=== PATIENT | female | born 1990 | race African-American/Black ===

== ENCOUNTER → 2016-12-12 16:39 | Outpatient (CLI) | payer MEDICAID ==
[2015-07-12 05:22] VITALS: BMI 22.0
[~2016-12-12 16:39] MED LIST: HYDROCODON-ACE1 EAC7 PO; IBUPROFEN600 MG PO; PRENAVITE1 TAB PO
== END | disposition home or self-care (01) ==
LOC: D.LDO 16:39
DX: Z34.93 Encounter for supervision of normal pregnancy, unspecified, third trimester (principal); Z3A.37 37 weeks gestation of pregnancy

== ENCOUNTER 2016-12-19 04:23 | Inpatient (IN) | payer MEDICAID ==
[~2016-12-19] VITALS: Ht 160 cm; Wt 53.5 kg
[2016-12-19] MEDS ORDERED: FERROUS SULFAT325 MG PO (04:52)
[2016-12-19 04:53] VITALS: BP 115/75; Ht 160 cm; Wt 53.5 kg
[2016-12-19 04:59] LABS: HEMATOCRIT 27.7 % (36.0-48.0); HEMOGLOBIN 9.2 g/dL (12-16); MCH 28.2 pg (26.0-34.0); MCHC 33.2 g/dL (31.0-37.0); MEAN PLATELET VOLUME 9.6 fL (7.4-10.4); RBC 3.26 10x6/uL (4.00-5.40); RDW 14.6 % (11.5-14.5); WBC 7.3 10x3/uL (4.8-10.8)
[2016-12-19 05:07] LABS: UDS - AMPHET NEGATIVE QUAL (NEGATIVE); UDS - BARB NEGATIVE QUAL (NEGATIVE); UDS - BENZO NEGATIVE QUAL (NEGATIVE); UDS - COCAINE NEGATIVE QUAL (NEGATIVE); UDS - METH NEGATIVE QUAL (NEGATIVE); UDS - OPIATE NEGATIVE QUAL (NEGATIVE); UDS - PCP NEGATIVE QUAL (NEGATIVE); UDS - THC POSITIVE QUAL (NEGATIVE)
--- NOTE | 2016-12-19 14:28 | NUR ---
Patient Name: ANTONY AG Admission Status: Elective Accout number: [id number] Admission Date: 12-19-2016 : 1990 Admission Diagnosis: Attending: LOPEZ Current LOS: 1 Anticipated DC Date: 12-20-2016 Planned Disposition: Home Primary Insurance: MEDICAID [place] Discharge Planning Comments: CM met with patient @ bedside. She states she is not employed at this time. She lives at home with her 1 1/2 year old daughter @ [address] [facility] in [place], . She reports baby's father is Pool AlejoJr edgardo. She reports he is employed by [employer] in [place]. [facility]. Patient reports baby's name is Marcial Olson. She is undecided whether her last name will be Thierno or John. At [place]j, she will return home with her daughter. She states her sisters & aunt will help her. They also provide transportation since she does not have a car. She denies having pets, ETOH & drugs in the home. She states she is a smoker but does not smoke indoors. She reports she has an infant car seat. She has an active Medicaid number, plans to apply for WIC later this week, & is receiving SNAP benefits. She does not plan to breast feed. She reports having all necessary supplies for baby including diapers, clothing, crib, & bottles. She reports her home has all basic working utilities and in a safe environment for herself and her children. Baby's co founder and cto is Dr. Hill. Discussed UDS findings. She reports she last used THC about 2 months ago for a couple of days. She states she was told she may have sickle cell disease & was very stressed out & worried. UDS findings were reported to [facility] by nursing as required per [employer]. Answered all questions. CM will follow & assist as needed. Manager Program Management: Salina Avitia
--- NOTE | 2016-12-19 14:45 | NUR ---
PT AMBULATES TO BR VOIDS 400 ML OF BLOOD-TINGED URINE. PERICARE DONE. PERIPAD CHANGED. PT AMB BACK TO BED. C/O BACK PAIN OF "8" ON 0-10 PAIN SCALE. IBUPROFEN 600 MG GIVEN PO ORDERED. PT INSTRUCTED ON MED. VERBALIZES UNDERSTANDING.
--- NOTE | 2016-12-19 15:30 | NUR ---
PT SITTING UP IN BED. VISITS WITH FAMILY AND HOLDS WITH MUCH WARMTH SHOWN. DENIES NEEDS.
--- NOTE | 2016-12-19 17:23 | NUR ---
PT SITTING UP IN BED. CARING FOR INFANT. VSS. FUNDUS FIRM AT U/1. RUBRA LOCHIA SMALL AMT. NO CLOTS NOTED. MILD EDEMA NOTED TO LABIA. PT DENIES C/O OR NEEDS.
[2016-12-19 17:24] VITALS: BP 114/73
[2016-12-19 19:09] VITALS: BP 119/77
--- NOTE | 2016-12-19 19:14 | NUR ---
PT RECEIVED TO MY CARE IN ROOM 1257. PT RESTING IN BED IN HIGH FOWLERS POSITION, VISITING WITH FAMILY AT BS, IN NO ACUTE DISTRESS. PT IS A 26YO G2 NOW P2 WITH OF VIABLE FEMALE TODAY @ 0752, PT WITH FIRST DEGREE LACERATION AND NO REPAIR. INFANT @ 38.4 WKS GESTATION. AAOX3. HR REGULAR. LUNGS CTAB. ABDOMEN SOFT AND NON TENDER. BS ACTIVE TIMES 4. FUNDUS FIRM AND ML @ U/-1, LOCHIA RUBRA SCANT. PERINIUM APPEARS TO BE INTACT WITH MINIMAL SWELLING NOTED. PT DENIES DIFFICULTY VOIDING. STATES SHE HAS PASSED GAS BUT HAS NOT HAD A BM SINCE . QING PAD AND PANTIES IN PLACE. NO SWELLING NOTED TO UPPER OR LOWER EXTREMITIES BILATERALLY. 18G SL IN PLACE TO RIGHT FA, FLUSHED WITH 5 CC NS AT THIS TIME WITHOUT DIFFICULTY. NO REDNESS, EDEMA, OR DRAINAGE NOTED TO SITE. PT TOLERATING REGULAR DIET. PT C/O PAIN OF 2/10 AT THIS TIME. DENIES THE NEED FOR MEDICATION. PT REQUESTS COKE AND ICE, PROVIDED AT THIS TIME. PT DENIES ANY FURTHER NEEDS. BED IN LOW POSITION, SIDE RAILS UP TIMES 2, CALL LIGHT AND PHONE IN REACH. FAMILY REMAINS AT PT BS TIMES 4 FOR SUPPORT AND ASSISTANCE. WILL CONT TO MONITOR PT STATUS.
--- NOTE | 2016-12-19 20:00 | NUR ---
RN TO PT BS FOR ROUNDS. PT RESTING IN BED IN SEMI-FOWLERS POSITION, VISITING WITH MULTIPLE FAMILY AT BS. PT DENIES ANY NEEDS AT THIS TIME. BED IN LOW POSITION, SIDE RAILS UP TIMES 2, CALL LIGHT AND PHONE IN REACH. FAMILY REMAINS AT PT BS FOR SUPPORT AND ASSISTANCE. INFANT REMAINS AT PT BS FOR COUPLET CARE. WILL CONT TO MONITOR PT STATUS.
--- NOTE | 2016-12-19 22:50 | NUR ---
RN TO PT BS FOR ROUNDS. PT RESTING IN BED IN SEMI-FOWLERS POSITION, TALKING ON PHONE, IN NO ACUTE DISTRESS. PT DENIES ANY NEEDS AT THIS TIME. BED IN LOW POSITION, SIDE RAILS UP TIMES 2, CALL LIGHT AND PHONE IN REACH. WILL CONT TO MONITOR PT STATUS.
--- NOTE | 2016-12-20 00:24 | NUR ---
RN TO PT BS FOR ROUNDS. PT RESTING IN BED IN SEMI-FOWLERS POSITION, WITH EYES CLOSED, IN NO ACUTE DISTRESS. RESPIRATIONS EVEN AND UNLABORED. BED IN LOW POSITION, SIDE RAILS UP TIMES 2, CALL LIGHT AND PHONE IN REACH. WILL CONT TO MONITOR PT STATUS.
--- NOTE | 2016-12-20 04:03 | NUR ---
RN TO PT BS FOR ROUNDS. PT RESTING IN BED IN SEMI-FOWLERS POSITION, WITH EYES CLOSED, IN NO ACUTE DISTRESSS. RESPIRATIONS EVEN AND UNLABORED. BED IN LOW POSITION, SIDE RAILS UP TIMES 2, CALL LIGHT AND PHONE IN REACH. WILL CONT TO MONITOR PT STATUS.
--- NOTE | 2016-12-20 06:15 | NUR ---
RN TO PT BS FOR ROUNDS. PT RESTING IN BED IN SEMI-FOWLERS POSITION IN NO ACUTE DISTRESS. CLINICAL LAB AT PT BS TO PERFORM AM DRAW. PT REQUESTS COKE AND FRESH ICE. PROVIDED AT THIS TIME. PT DENIES ANY FURTHER NEEDS. BED IN LOW POSITION, SIDE RAILS UP TIMES 2, CALL LIGHT AND PHONE IN REACH. WILL CONT TO MONITOR PT STATUS.
[2016-12-20 06:16] LABS: RAPID PLASMA REAGIN Non Reactive (Non Reactive)
[2016-12-20 06:32] LABS: HEMATOCRIT 24.6 % (36.0-48.0); HEMOGLOBIN 8.1 g/dL (12-16); MCH 27.8 pg (26.0-34.0); MCHC 32.9 g/dL (31.0-37.0); MCV 84.5 fL (80.0-100.0); MEAN PLATELET VOLUME 9.6 fL (7.4-10.4); RBC 2.91 10x6/uL (4.00-5.40); RDW 14.6 % (11.5-14.5); WBC 8.8 10x3/uL (4.8-10.8)
[2016-12-20 08:45] VITALS: BP 116/82
--- NOTE | 2016-12-20 08:45 | NUR ---
PT IN HIGH FOWLERS POSIITON HOLDING . PHYSICAL ASSESSMENT DONE, SEE SHIFT ASSESSMENT. FUNDUS FIRM U/1. LIGHT RUBRA LOCHIA NOTED ON QING PAD. PT DENIES PASSING CLOTS THROUGHOUT THE NIGHT. PT REPORTS PASSING GAS SINCE DELIVERY BUT DENIES BM. SALINE LOCK NOTED IN RIGHT FA. DCD WITH CATH TIP INTACT. PT RATES PAIN 3/10 AND REQUESTS MOTRIN AND SHOWER MATERIALS. PT ALSO ASKS FOR DEPO SHOT PRIOR TO DC WELL NICODERM PATCH PRESCRIPTION.
--- NOTE | 2016-12-20 08:57 | NUR ---
MOTRIN 600MG GIVEN PO FOR PAIN. HYGIENE PRODUCTS PROVIDED FOR SHOWER. TAKEN TO NURSERY VIA CRIB. PT DENIES FURTHER NEEDS
--- NOTE | 2016-12-20 11:00 | NUR ---
WRITTEN AND VERBAL DISCHARGE INSTRUCTIONS GIVEN WELL PRESCRIPTION FOR MOTRIN 600MG FROM DR HOUSER. PT AND FAMILY VERBALIZE UNDERSTANDING. PT AWARE TO WAIT ON DEPO INJECTION.
[2016-12-20] MEDS ORDERED: IBUPROFEN600 MG PO (11:06)
--- NOTE | 2016-12-20 11:26 | NUR ---
DEPO PROVERA INJECTION GIVEN IM IN RIGHT DG. PT TOLERATED WELL. INFANT PLACED IN CAR SEAT AND OFF UNIT TO PRIVATE VEHICLE. PT DENIES FURTHER NEEDS AT THIS TIME
== END 2016-12-20 17:30 | disposition home or self-care (01) | DRG 775 ==
LOC: D.LDO 04:23 → D.LD 04:33
PROVIDERS: ADMIT Obstetrics & Gynecology
PROC: 10E0XZZ Delivery of Products of Conception, External Approach (ICD-10-PCS; principal; 2016-12-19)
PROC: 0HQ9XZZ Repair Perineum Skin, External Approach (ICD-10-PCS; 2016-12-19)
DX: O99.02 Anemia complicating childbirth (principal); O99.324 Drug use complicating childbirth; D64.9 Anemia, unspecified; O99.334 Smoking (tobacco) complicating childbirth; F12.90 Cannabis use, unspecified, uncomplicated; O70.0 First degree perineal laceration during delivery; Z3A.38 38 weeks gestation of pregnancy; Z37.0 Single live birth

== ENCOUNTER 2020-10-07 17:39 | Emergency (ER) | payer MEDICAID ==
[~2020-10-07] VITALS: Ht 160 cm; Wt 51.4 kg
[~2020-10-07 17:39] MED LIST changes: +FERROUS SULFAT325 MG PO
[2020-10-07 17:53] VITALS: Ht 160 cm; Wt 51.4 kg
[2020-10-07] MEDS ORDERED: PROPRANOLOL HCL60 MG PO (17:56)
[2020-10-07] MEDS ORDERED: ZOFRAN4 MG PO (17:56)
[2020-10-07 18:15] LABS: BASOPHILS 0.2 % (0-2); EOSINOPHILS 1.5 % (0-7); HEMATOCRIT 39.7 % (36.0-48.0); HEMOGLOBIN 13.4 g/dL (12-16); LYMPHOCYTE ABS# 1.52 10x3/uL (1.18-3.74); LYMPHOCYTES 33.6 % (15-50); MCH 30.1 pg (26.0-34.0); MCHC 33.8 g/dL (31.0-37.0); MCV 89.2 fL (80.0-100.0); MEAN PLATELET VOLUME 10.6 fL (7.4-10.4); MONOCYTES 5.7 % (2-11); NEUTROPHIL ABS# 2.67 10x3/uL (1.56-6.13); PLATELET COUNT 219 10x3/uL (130-400); RBC 4.45 10x6/uL (4.00-5.40); WBC 4.5 10x3/uL (4.8-10.8)
[2020-10-07 18:22] LABS: CALC OSMOLALITY 277 mosm/kg (275-300); CALCIUM 9.2 mg/dL (8.5-10.1); CARBON DIOXIDE 30.7 mmol/L (21.0-32.0); CHLORIDE - SERUM 104 mmol/L (98-107); CREATININE - SERUM 0.8 mg/dL (0.6-1.3); GLUCOSE 98 mg/dL (74-106); POTASSIUM - SERUM 3.5 mmol/L (3.5-5.1); SODIUM 140 mmol/L (136-145); UREA NITROGEN 10 mg/dL (7-18); eGFR NON AFRICAN AMERICAN 89 mL/min (90-120)
[2020-10-07 18:24] LABS: BILIRUBIN NEGATIVE (NEGATIVE); KETONE NEGATIVE (NEGATIVE); NITRITE NEGATIVE (NEGATIVE); UROBILINOGEN NORMAL mg/dL (< 2)
[2020-10-07 18:30] LABS: ALBUMIN 3.8 g/dL (3.4-5.0); ALKALINE PHOSPHATASE 95 U/L (30-120); ALT (SGPT) 14 U/L (10-68); AMYLASE - SERUM 49 U/L (25-115); BILIRUBIN - TOTAL 0.15 mg/dL (0.2-1.3); LIPASE 161 U/L (73-393); PROTEIN - SERUM 7.5 g/dL (6.4-8.2)
[2020-10-07 18:37] LABS: HCG URINE NEGATIVE (NEGATIVE)
[2020-10-07 18:46] LABS: TROPONIN-I < 0.017 ng/mL (0.000-0.060)
[2020-10-07 19:06] LABS: UDS - AMPHET NEGATIVE QUAL (NEGATIVE); UDS - BARB NEGATIVE QUAL (NEGATIVE); UDS - BENZO NEGATIVE QUAL (NEGATIVE); UDS - COCAINE NEGATIVE QUAL (NEGATIVE); UDS - OPIATE NEGATIVE QUAL (NEGATIVE); UDS - PCP NEGATIVE QUAL (NEGATIVE); UDS - THC POSITIVE QUAL (NEGATIVE)
[2020-10-07] MEDS ORDERED: ULTRAM50 MG PO (19:23)
[2020-10-07 19:34] VITALS: BP 106/71
== END 2020-10-07 19:32 | disposition home or self-care (01) ==
LOC: D.ER 17:39
PROVIDERS: Family Medicine
DX: N83.209 Unspecified ovarian cyst, unspecified side (principal); R10.9 Unspecified abdominal pain